=== PATIENT | male | born 1975 | race Two or more races ===

== ENCOUNTER 2024-06-30 23:39 | Emergency (ER) | payer SELFPAY ==
[~2024-06-30] VITALS: Ht 172.7 cm; Wt 67.0 kg
[2024-06-30 23:50] VITALS: TEMP 36.9; O2SAT 100
[2024-07-01 00:11] VITALS: BP 179/101; PULSE 77; RESP 16
[2024-07-01] MEDS: KETOROLAC 15MG/ML VIAL IM ONE (00:11)
[2024-07-01] MEDS ORDERED: NAPR-1176 MT (01:16)
== END 2024-07-01 01:28 | disposition home or self-care (01) ==
LOC: ER 23:39
DX: S52.292A Other fracture of shaft of left ulna, initial encounter for closed fracture (principal); Z79.1 Long term (current) use of non-steroidal anti-inflammatories (NSAID); W22.03XA Walked into furniture, initial encounter; Y93.89 Activity, other specified; Y92.89 Other specified places as the place of occurrence of the external cause; Y99.8 Other external cause status
CPT/HCPCS: 99283; 73110; 29125; 96372; J1885